=== PATIENT | female | born 1955 | race Caucasian/White ===

== ENCOUNTER → 2020-01-23 | Outpatient (CLI) | payer OTHER ==
--- NOTE | 2020-01-27 08:44 | MM ---
Reason for exam: screening (asymptomatic). Last mammogram was performed 2 years and 4 months ago. History: Patient is postmenopausal, has history of endometrial cancer at age 52, and is nulliparous. Physical Findings: A clinical breast exam by your physician is recommended on an annual basis and results should be correlated with mammographic findings. MG 3D Screening Mammo W/Cad Bilateral CC and MLO view(s) were taken. XCCL view(s) were taken of the left breast. Prior study comparison: September 19, 2017, mammogram. The breast tissue is heterogeneously dense. This may lower the sensitivity of mammography. Finding: There are typically benign skin calcifications in the left breast. No significant changes in finding since September 19, 2017. ASSESSMENT: Benign, BI-RAD 2 RECOMMENDATION: Routine screening mammogram of both breasts in 1 year.
== END | disposition home or self-care (01) ==
LOC: RADMAMWWP 12:32
PROVIDERS: ATTEND Obstetrics & Gynecology Obstetrics
DX: Z12.31 Encounter for screening mammogram for malignant neoplasm of breast (principal)
CPT/HCPCS: 77063; 77067

== ENCOUNTER 2020-04-07 07:40 | Day surgery (SDC) | payer OTHER ==
[2020-04-03 08:36] VITALS: BMI 25.5
[~2020-04-07 07:40] MED LIST: LACTATED RINGERS 1,000 ML IV SCH; LIDOCAINE 1% (10MG/ML) FOR IV START INTRADERMA PRN
[2020-04-07 07:57] VITALS: RESP 16; TEMP 97.2
[2020-04-07] MEDS ORDERED: PROPOFOL 10 MG/ML 20 ML VIAL IV ONE (08:34)
--- NOTE | 2020-04-07 08:37 | P.GSHP ---
History of Present Illness H&P Date: 04/07/20 Chief Complaint: Colon cancer screening Patient here today for colonoscopy. Last colonoscopy 10 years ago. This was performed in [place]. States she had multiple polyps. No bowel complaints. Past Medical History Past Medical History: Cancer Additional Past Medical History / Comment(s): hx of endometrial ca, hx of colon polyps History of Any Multi-Drug Resistant Organisms: None Reported Past Surgical History: Hysterectomy Additional Past Surgical History / Comment(s): subaceous cyst removed from shoulder, colonoscopy Past Anesthesia/Blood Transfusion Reactions: Postoperative Nausea & Vomiting (PONV) Smoking Status: Never smoker - Past Family History Father Family Medical History: Cancer Additional Family Medical History / Comment(s): prostate Medications and Allergies Home Medications Medication Instructions Recorded Confirmed Type Cholecalciferol [Vitamin D3 (25 1,000 unit PO DAILY 04/03/20 04/03/20 History Mcg = 1000 Iu)] Multivit-Min/Iron/Folic/Lutein 1 each PO DAILY 04/03/20 04/03/20 History [Centrum Silver Women Tablet] Pseudoephedrine 12Hr [Sudafed 12Hr] 120 mg PO Q12H PRN 04/03/20 04/03/20 History Allergies Allergy/AdvReac Type Severity Reaction Status Date / Time adhesive tape Allergy Rash/Hives Verified 04/07/20 07:50 sulfamethoxazole Allergy throat Verified 04/07/20 07:50 [From Bactrim] Swelling tobramycin Allergy red Verified 04/07/20 07:50 irritated eyes trimethoprim [From Bactrim] Allergy throat Verified 04/07/20 07:50 Swelling Surgical - Exam Vital Signs Temp Pulse Resp BP Pulse Ox 97.2 F L 65 16 113/74 100 04/07/20 07:56 04/07/20 07:56 04/07/20 07:56 04/07/20 07:56 04/07/20 07:56 Physical exam: General: Well-developed, well-nourished HEENT: Normocephalic, sclerae nonicteric Abdomen: Nontender, nondistended Extremities: No edema Neuro: Alert and oriented Assessment and Plan (1) Colon cancer screening Narrative/Plan: Will proceed with colonoscopy Current Visit: Yes Status: Acute Code(s): Z12.11 - ENCOUNTER FOR SCREENING FOR MALIGNANT NEOPLASM OF COLON SNOMED Code(s): 882319162
--- NOTE | 2020-04-07 08:55 | P.PCN ---
Date of Procedure: 04/07/20 Procedure(s) Performed: PREOPERATIVE DIAGNOSIS: Colon cancer screening POSTOPERATIVE DIAGNOSIS: Normal exam PROCEDURE: Colonoscopy ANESTHESIA: MAC SURGEON: Vinny Stoll M.D. SPECIMENS: None ENDOSCOPIC PROCEDURE: The patient was placed on the endoscopy table in the left decubitus position. The Olympus colonoscope was inserted into the anus and passed under direct visualization to the base of the cecum. The appendiceal orifice was visualized. From that point the scope was slowly withdrawn inspecti ng all surfaces carefully. There were no neoplastic inflammatory or polypoid lesions throughout the cecum, ascending, transverse, descending, sigmoid and rectum. There was no visible diverticulosis noted. Digital rectal examination was normal. The patient was taken to the recovery room in stable condition per anesthesia guidelines. RECOMMENDATIONS: Resume diet. Follow-up colonoscopy in 10 years
[2020-04-07 09:21] VITALS: BP 113/77; PULSE 59
== END 2020-04-07 09:38 | disposition home or self-care (01) ==
LOC: ORWHC2ENDO 07:40
PROVIDERS: ATTEND Surgery
DX: Z12.11 Encounter for screening for malignant neoplasm of colon (principal); Z86.010 Personal history of colon polyps; Z98.890 Other specified postprocedural states; Z85.42 Personal history of malignant neoplasm of other parts of uterus; Z90.710 Acquired absence of both cervix and uterus; Z87.2 Personal history of diseases of the skin and subcutaneous tissue; Z91.89 Other specified personal risk factors, not elsewhere classified; Z91.09 Other allergy status, other than to drugs and biological substances; Z88.2 Allergy status to sulfonamides; Z88.1 Allergy status to other antibiotic agents; Z80.42 Family history of malignant neoplasm of prostate
CPT/HCPCS: G0105; J2704

== ENCOUNTER → 2021-02-24 | Outpatient (CLI) | payer MEDICARE ==
--- NOTE | 2021-03-01 09:47 | MM ---
Reason for exam: screening (asymptomatic). Last mammogram was performed 1 year and 1 month ago. History: Patient is postmenopausal, has history of endometrial cancer at age 52, and is nulliparous. Physical Findings: A clinical breast exam by your physician is recommended on an annual basis and results should be correlated with mammographic findings. MG 3D Screening Mammo W/Cad Bilateral CC and MLO view(s) were taken. Prior study comparison: January 23, 2020, bilateral MG 3d screening mammo w/cad. September 19, 2017, mammogram. There are scattered fibroglandular densities. ASSESSMENT: Negative, BI-RAD 1 RECOMMENDATION: Routine screening mammogram of both breasts in 1 year.
== END | disposition home or self-care (01) ==
LOC: RADMAMWWP 12:58
PROVIDERS: ATTEND Obstetrics & Gynecology Obstetrics
DX: Z12.31 Encounter for screening mammogram for malignant neoplasm of breast (principal); Z78.0 Asymptomatic menopausal state; Z85.42 Personal history of malignant neoplasm of other parts of uterus
CPT/HCPCS: 77063; 77067

== ENCOUNTER → 2022-03-29 | Outpatient (CLI) | payer MEDICARE ==
--- NOTE | 2022-04-01 12:17 | MM ---
Reason for Exam: Screening (asymptomatic). Last mammogram was performed 1 year(s) and 1 month(s) ago. Patient History: Menarche at age 13. Patient has no children. Hysterectomy at age 53. Postmenopausal. Endometrial cancer, age 52. Risk Values: Addie 5 year model risk: 1.9%. NCI Lifetime model risk: 6.7%. Prior Study Comparison: 09/19/2017 Screening Mammogram, Unknown. 01/23/2020 Bilateral Screening Mammogram, [facility]. 02/24/2021 Bilateral Screening Mammogram, [facility]. Tissue Density: The breast tissue is heterogeneously dense. This may lower the sensitivity of mammography. Findings: Analyzed By CAD. Asymmetric prominent tissue upper aspect left breast unchanged from 2013 mammogram. Benign-appearing left axillary lymph nodes are redemonstrated. There is no suspicious group of microcalcifications or new suspicious mass in either breast. Overall Assessment: Negative, BI-RAD 1 Management: Screening Mammogram of both breasts in 1 year. A clinical breast exam by your physician is recommended on an annual basis and results should be correlated with mammographic findings. Electronically signed and approved by: Bull Sheets M.D.
== END | disposition home or self-care (01) ==
LOC: RADMAMWWP 16:50
PROVIDERS: ATTEND Obstetrics & Gynecology Obstetrics
DX: Z12.31 Encounter for screening mammogram for malignant neoplasm of breast (principal); Z78.0 Asymptomatic menopausal state
CPT/HCPCS: 77063; 77067

== ENCOUNTER → 2022-07-28 | Outpatient (CLI) | payer MEDICARE ==
--- NOTE | 2022-07-28 10:00 | US ---
EXAMINATION TYPE: US kidneys/renal and bladder DATE OF EXAM: 07/28/2022 COMPARISON: NONE CLINICAL HISTORY: R319 HEMATURIA. Left flank pain, microscopic hematuria EXAM MEASUREMENTS: Right Kidney: 11.8 x 3.9 x 4.7 cm Left Kidney: 12.4 x 6.6 x 5.7 cm Right Kidney: multiple hyperechoic areas noted, largest = 0.5cm. These are within the femoral renal cortex, consider angiomyolipomas. Dilated renal pelvis Left Kidney: moderate hydronephrosis. anechoic area = 3.4 x 2.9 x 2.9cm. Pedicle with a simple cyst 2 hyperechoic areas lower pole = 0.6cm ? angiomyolipomas Bladder: wnl Bilateral Jets seen: yes Bladder is sonolucent. The posterior wall is normal. IMPRESSION: 1. Moderate left hydronephrosis of uncertain etiology. 2. Multiple scattered hyperechoic areas within the renal cortices. Consider angiomyolipomas. 3. Simple appearing left renal cyst.
== END | disposition home or self-care (01) ==
LOC: RADUSWWP 08:48
PROVIDERS: ATTEND Family Medicine
DX: N28.1 Cyst of kidney, acquired (principal); N13.30 Unspecified hydronephrosis
CPT/HCPCS: 76770

== ENCOUNTER → 2023-04-03 | Outpatient (CLI) | payer MEDICARE ==
--- NOTE | 2023-04-05 08:39 | MM ---
Reason for Exam: Screening (asymptomatic). Last screening mammogram was performed 12 month(s) ago. Patient History: Menarche at age 13. Patient has no children. Hysterectomy at age 53. Postmenopausal. Endometrial cancer, age 52. Risk Values: Addie 5 year model risk: 1.9%. NCI Lifetime model risk: 6.4%. Prior Study Comparison: 01/23/2020 Bilateral Screening Mammogram, [facility]. 02/24/2021 Bilateral Screening Mammogram, [facility]. 03/29/2022 Bilateral MG 3D screening mammo w/cad, [facility]. Tissue Density: The breast tissue is heterogeneously dense. This may lower the sensitivity of mammography. Findings: Analyzed By CAD. There is no suspicious group of microcalcifications or new suspicious mass in either breast. Overall Assessment: Benign, BI-RAD 2 Management: Screening Mammogram of both breasts in 1 year. . Patient should continue monthly self-breast exams. A clinical breast exam by your physician is recommended on an annual basis. This exam should not preclude additional follow-up of suspicious palpable abnormalities. Note on Addie scores and lifetime risk: 1. A Addie score greater than 3% is considered moderate risk. If this is the case, consider specialist referral to assess eligibility for a risk reducing agent. 2. If overall lifetime risk for the development of breast cancer is 20% or higher, the patient may qualify for future screening with alternating mammogram and breast MRI. Electronically signed and approved by: Duane Mckeon M.D. Radiologis
== END | disposition home or self-care (01) ==
LOC: RADMAMWWP 15:11
PROVIDERS: ATTEND Family Medicine
DX: Z12.31 Encounter for screening mammogram for malignant neoplasm of breast (principal); Z78.0 Asymptomatic menopausal state
CPT/HCPCS: 77063; 77067

== ENCOUNTER → 2024-04-04 | Outpatient (CLI) | payer MEDICARE ==
--- NOTE | 2024-04-04 08:21 | MM ---
Reason for Exam: Screening (asymptomatic). Last screening mammogram was performed 12 month(s) ago. Patient History: Menarche at age 13. Patient has no children. Hysterectomy at age 53. Postmenopausal. Endometrial cancer, age 52. Risk Values: Addie 5 year model risk: 1.9%. NCI Lifetime model risk: 6.2%. Prior Study Comparison: 02/24/2021 Bilateral Screening Mammogram, [facility]. 03/29/2022 Bilateral MG 3D screening mammo w/cad, [facility]. 04/03/2023 Bilateral MG 3D screening mammo w/cad, [facility]. Tissue Density: The breasts are heterogeneously dense, which may obscure small masses. Findings: Analyzed By CAD. There is no suspicious group of microcalcifications or new suspicious mass in either breast. Asymmetric density outer right cc view in upper left MLO view are unchanged dating back to 2019. Overall Assessment: Benign, BI-RAD 2 Management: Screening Mammogram of both breasts in 1 year. . Patient should continue monthly self-breast exams. A clinical breast exam by your physician is recommended on an annual basis. This exam should not preclude additional follow-up of suspicious palpable abnormalities. Note on Addie scores and lifetime risk: 1. A Addie score greater than 3% is considered moderate risk. If this is the case, consider specialist referral to assess eligibility for a risk reducing agent. 2. If overall lifetime risk for the development of breast cancer is 20% or higher, the patient may qualify for future screening with alternating mammogram and breast MRI. [facility], , 04/04/2024 8:18 AM. Electronically signed and approved by: Duane Mckeon M.D. Radiologis
--- NOTE | 2024-04-04 14:45 | BD ---
EXAMINATION TYPE: Axial Bone Density DATE OF EXAM: 04/04/2024 CLINICAL HISTORY: 68 years old Female. ICD-10 CODE: Z78.0 POST MENOPAUSAL WITHOUT HRT , Additional H istory: Height: 68 Weight: 160 FRAX RISK QUESTIONS: Family History (Parent hip fracture): no History of Fracture in Adulthood: no Secondary Osteoporosis: no RISK FACTORS HISTORY OF: Surgery to Spine/Hip(right/left)/Wrist (right/left): no MEDICATIONS: Thyroid Medications: no Osteoporosis Medications: no EXAM MEASUREMENTS: Bone mineral densitometry was performed using the [employer] System. Bone mineral density as measured about the Lumbar spine is: ----- L1-L4(G/cm2): 1.493 T Score Values are as follows: ----- L1: 1.2 ----- L2: 1.5 ----- L3: 3.0 ----- L4: 4.3 ----- L1-L4: 2.6 Z Score Values are as follows: ----- L1: 2.6 ----- L2: 2.9 ----- L3: 4.4 ----- L4: 5.6 ----- L1-L4: 4.0 Bone mineral density baseline Bone mineral density about the R hip (g/cm2): 1.058 Bone mineral density about the L hip (g/cm2): 1.040 T Score values are as follows: -----R Neck: -0.6 -----L Neck: -0.4 -----R Total: 0.4 -----L Total: 0.3 Z Score values are as follows: -----R Neck: 0.9 -----L Neck: 1.0 -----R Total: 1.6 -----L Total: 1.5 Bone mineral density baseline FRAX%s: The graph provided illustrates a 7.8% chance for a major osteoporotic fx and a 0.5% chance fo r the hips probability for fx in 10 years time. IMPRESSION: Normal (Values between +1 and -1 indicate normal bone mass). Consider repeating this study in 5 year s or sooner if there is some new clinical indication. NOTE: T-SCORE=SD OF THE YOUNG ADULT MEAN. [facility], , 04/04/2024 2:43 PM
== END | disposition home or self-care (01) ==
LOC: RADMAMWWP 06:56
PROVIDERS: ATTEND Family Medicine
DX: Z12.31 Encounter for screening mammogram for malignant neoplasm of breast (principal); Z78.0 Asymptomatic menopausal state; R92.333 Mammographic heterogeneous density, bilateral breasts
CPT/HCPCS: 77063; 77067; 77080